=== PATIENT | female | born 1970 | race Caucasian/White ===

== ENCOUNTER 2022-06-08 10:52 | Outpatient (REF) | payer OTHER, SELFPAY ==
[2022-06-08 14:50] LABS: Free T4 (Free Thyroxine) 0.78 ng/dL (0.71-1.85); Thyroid Stimulating Hormone 0.78 uIU/mL (0.32-4.0)
[2022-06-09 17:54] LABS: Follicle Stimulating Hormone 63.3 mIU/mL; Lutenizing Hormone 52.9 mIU/mL; Prolactin 3.1 ng/mL
[2022-06-13 15:24] LABS: Progesterone <0.1 ng/mL
[2022-06-14 01:44] LABS: Testosterone, Total 21 ng/dL (2-45)
[2022-06-18 02:53] LABS: Estradiol Free 0.18 pg/mL; Estradiol, Ultrasensitive 7 pg/mL
== END 2022-06-08 10:53 | disposition home or self-care (01) ==
LOC: HO.MANLDS 10:52
PROVIDERS: Visit Provider Physician Assistant
DX: N95.8 Other specified menopausal and perimenopausal disorders (principal); R53.83 Other fatigue; N92.6 Irregular menstruation, unspecified
CPT/HCPCS: 36415; 82670; 82681; 83001; 83002; 84144; 84146; 84403; 84439; 84443

== ENCOUNTER → 2023-03-12 13:53 | Outpatient (BNVA) | payer OTHER, SELFPAY | PROVIDERS: PCP Internal Medicine; Visit Provider Physician Assistant Surgical ==

== ENCOUNTER 2023-06-25 15:50 | Outpatient (REF) | payer OTHER, SELFPAY ==
[2023-06-25 17:21] LABS: MANUAL DIFF FLAG NO
[2023-06-25 17:27] LABS: Basophils Percent Auto 0.6 % (0-2); Eosinophils Absolute Auto 0.1 X10*3/uL (0.0-0.4); Eosinophils Percent Auto 1.8 % (0-4); Hematocrit 40.2 % (37.0-47.0); Hemoglobin 13.5 g/dl (12.0-16.0); Imm Gran Abs Auto 0.02 X10*3/uL (0.00-0.03); Imm Gran Pct Auto 0.3 % (0.0-0.4); Lymphocytes Absolute Auto 1.9 X10*3/uL (1.2-4.9); Lymphocytes Percent Auto 31.2 % (20-40); Mean Corpuscular HGB Conc 33.6 g/dl (31.0-35.0); Mean Corpuscular Hemoglobin 29.3 pg (27.0-33.0); Mean Corpuscular Volume 87.4 fL (80.0-98.0); Mean Platelet Volume 9.3 fL (9.4-12.3); Monocytes Absolute Auto 0.6 X10*3/uL (0.1-1.2); Monocytes Percent Auto 8.9 % (2-11); Neutrophils Absolute Auto 3.5 x10*3/uL (2.0-8.3); Neutrophils Percent Auto 57.2 % (45-73); Platelet Count 294 X10*3/uL (160-400); Red Cell Distribution Width 12.8 % (11.0-16.0); White Blood Count 6.2 X10*3/uL (4.8-10.8)
[2023-06-25 17:49] LABS: Alanine Aminotransferase 26 U/L (0-31); Alkaline Phosphatase 51 U/L (39-117); Amylase 43 U/L (28-100); Anion Gap 9 (12-20); Aspartate Amino Transferase 16 U/L (5-31); Bilirubin Total 0.3 mg/dL (0.0-1.0); Blood Urea Nitrogen 8 mg/dL (9-16); C Reactive Protein 0.18 mg/dL (< or = 0.50); Calcium 8.9 mg/dL (8.4-10.2); Carbon Dioxide 28 mmol/L (22-29); Chloride 107 mmol/L (96-108); Estimated Glomerular Filt Rate > 60; Gamma Glutamyl Transpeptidase 24 U/L (7-33); Glucose Random 103 mg/dL (60-115); Iron 61 mcg/dL (30-160); Lipase 18 U/L (8-78); Percent Iron Saturation 20 % (15-50); Sodium 140 mmol/L (135-145); Total Iron Binding Capacity 302 mcg/dL (228-428); Total Protein 7.6 g/dL (6.5-8.0); Unsaturated Iron Binding 241 ug/dL
[2023-06-25 18:04] LABS: Ferritin 147 ng/mL (10-250)
[2023-06-25 18:52] LABS: Erythrocyte Sedimentation Rate 21 MM/HR (0-20)
== END 2023-06-25 15:51 | disposition home or self-care (01) ==
LOC: HO.MANLDS 15:50
PROVIDERS: Visit Provider Physician Assistant
DX: K29.60 Other gastritis without bleeding (principal)
CPT/HCPCS: 36415; 80053; 82150; 82728; 82977; 83540; 83690; 85025; 85652; 86140

== ENCOUNTER 2023-11-01 12:54 | Outpatient (AMB) | payer OTHER, SELFPAY ==
[2023-11-01 13:04] VITALS: BMI 33.6
--- NOTE | 2023-11-01 13:04 | A.OFFVIS_ITS ---
VS Expanded 11/01/23 13:04 11/15/23 09:25 Height 5 ft 4 in 5 ft 4 in Weight 195 lb 15.855 oz 196 lb BMI 33.6 33.6 Intake Visit Reasons: Arthritis/lvm Allergies No Known Allergies Allergy (Unverified 12/14/19 16:51) Nutrition Presentation Details: Pt present for MNT for rheumatoid arthritis. Pt was referred by document imaging specialist , Larry [place] Pt reports she has recently started taking methotrexate and is working on having small meals throughout the day related to nausea, sometimes diarrhea Food frequency: fish : 2 x/wk fruits: twice/day vegetables: 2-3 x/wk coffee: 2 cup/day (was having > amount) dairy: 2-3 serving/day pastries and similar: reports working on reducing sugars BS Monitoring Most Recent Diabetes Results: Creatinine 0.87 mg/dL (0.5-1.4) 06/25/23 Blood Urea Nitrogen 8 mg/dL (9-16) L 06/25/23 Sodium 140 mmol/L (135-145) 06/25/23 Potassium 4.0 mmol/L (3.3-5.1) 06/25/23 Chloride 107 mmol/L (96-108) 06/25/23 Carbon Dioxide 28 mmol/L (22-29) 06/25/23 Calcium 8.9 mg/dL (8.4-10.2) 06/25/23 AST 16 U/L (5-31) 06/25/23 ALT 26 U/L (0-31) 06/25/23 Total Protein 7.6 g/dL (6.5-8.0) 06/25/23 Albumin 4.0 g/dL (3.5-5.0) 06/25/23 NIP-Dfchylv-Zv.Jeor Equation Height: 5 ft 4 in Weight: 196 lb Resting Metabolic Rate: 1492.23 Calculated Activity Level: Sedentary Calories Needed to Maintain Weight: 1790.68 Diagnosis Nutrition problem #1: food nutri know defi As related to (etiology) #1: diagnosis As evidenced by (sign/symptom) #1: knowledge deficit of diet Assessment & Plan Assessment & Plan (1) Arthritis: Comment: Pt with obesity with BMI at 33.6 on 10/2023 Code(s): M19.90 - Unspecified osteoarthritis, unspecified site Category: Medical Plan: Wt: 89 Kg ( 10/2023 ) Est kcal needs as per MSJ: 1800 (40% carb, 30% protein/fat) Est fluid needs as per 25-30 ml/d: 2700 Est prot per day as per 1 g/kg bw: 89 Recommend fiber intake : 8-10 g per day and gradually increase to 25-28 g per day for women and 35-38 g for men or as tolerated Recommend sodium intake per day : less than 2000 mg Educated patient on: ( R = reviewed V = verbalizes understanding N/R = needs review N/A = not applicable * Food sources of carbohydrate, adequate serving sizes and its role in various health conditions: R * Differences between complex carbohydrates a simple carbohydrates, role of fiber in diet: R V N/R * Lean protein sources of foods: R V NR * Differences between types of fats and role in diet (mono on saturated fat fatty acids, saturated fatty acids, trans fats): R * Food sources of sodium in salt and healthy modifications for heart health in kidney health: R V R/V * Vitamins and minerals: R V N/R * Healthy plate method concept: R V N/R * Physical activity: Benefits a precaution: R V N/R * Folic Acid food sources : R Patient Instructions: follow healthy plate method - see meal plan for ideas Include food sources of folic acid (leafy green vegetables , nuts, avocado) keep hydrated by having water with meals and snack Coding Level of Care Code Nutr Indiv Intake (03259) Diagnoses Arthritis M19.90 Time Spent (min) 30
[2023-11-15 09:25] VITALS: BMI 33.6
== END 2023-11-01 13:44 | disposition home or self-care (01) ==
PROVIDERS: PCP Internal Medicine; Visit Provider Dietitian, Registered
DX: M19.90 Unspecified osteoarthritis, unspecified site (principal)

== ENCOUNTER → 2023-11-01 12:54 | Outpatient (BNVA) | payer OTHER, SELFPAY | PROVIDERS: PCP Internal Medicine; Visit Provider Dietitian, Registered | DX: M06.9 Rheumatoid arthritis, unspecified (principal); E66.9 Obesity, unspecified; Z68.33 Body mass index [BMI] 33.0-33.9, adult; Z79.631 Long term (current) use of antimetabolite agent; Z71.3 Dietary counseling and surveillance | CPT/HCPCS: 97802 ==

== ENCOUNTER 2024-03-23 13:20 | Outpatient (REF) | payer OTHER, SELFPAY ==
[2024-03-23 14:45] LABS: MANUAL DIFF FLAG NO
[2024-03-23 15:49] LABS: Basophils Absolute Auto 0.1 X10*3/uL (0.0-0.2); Basophils Percent Auto 0.6 % (0-2); Eosinophils Absolute Auto 0.2 X10*3/uL (0.0-0.4); Eosinophils Percent Auto 1.8 % (0-4); Hematocrit 38.4 % (37.0-47.0); Hemoglobin 12.9 g/dl (12.0-16.0); Imm Gran Abs Auto 0.02 X10*3/uL (0.00-0.03); Imm Gran Pct Auto 0.2 % (0.0-0.4); Lymphocytes Absolute Auto 2.6 X10*3/uL (1.2-4.9); Lymphocytes Percent Auto 30.2 % (20-40); Mean Corpuscular HGB Conc 33.6 g/dl (31.0-35.0); Mean Corpuscular Hemoglobin 30.8 pg (27.0-33.0); Mean Corpuscular Volume 91.6 fL (80.0-98.0); Mean Platelet Volume 9.8 fL (9.4-12.3); Monocytes Absolute Auto 0.7 X10*3/uL (0.1-1.2); Monocytes Percent Auto 8.2 % (2-11); Platelet Count 281 X10*3/uL (160-400); Red Blood Count 4.19 X10*6/uL (4.20-5.50); Red Cell Distribution Width 13.6 % (11.0-16.0); White Blood Count 8.5 X10*3/uL (4.8-10.8)
[2024-03-23 16:15] LABS: Alanine Aminotransferase 31 U/L (0-31); Aspartate Amino Transferase 26 U/L (5-31); C Reactive Protein 0.12 mg/dL (< or = 0.50); Estimated Glomerular Filt Rate > 60
[2024-03-23 16:37] LABS: Erythrocyte Sedimentation Rate 14 MM/HR (0-20)
== END 2024-03-23 13:21 | disposition home or self-care (01) ==
LOC: HO.LAB 13:20
PROVIDERS: PCP Internal Medicine; Visit Provider Internal Medicine Rheumatology
DX: M06.9 Rheumatoid arthritis, unspecified (principal); Z79.631 Long term (current) use of antimetabolite agent; Z79.899 Other long term (current) drug therapy
CPT/HCPCS: 36415; 82565; 84450; 84460; 85025; 85652; 86140

== ENCOUNTER 2024-03-23 13:20 | Outpatient (AMB) | payer OTHER, SELFPAY ==
--- NOTE | 2024-03-23 13:36 | A.OFFVIS_ITS ---
Vital Signs 03/23/24 13:37 Height 5 ft 4 in Weight 192 lb 10.944 oz BMI 33.1 BP 120/70 Blood Pressure Location Lt brachial Position Sitting Pulse 65 Pulse Source Pulse Oximeter Pulse Oximetry (%) 99 Oxygen Delivery Method Room Air Intake Visit Reasons: Arthritis (ATC recs on file) Intake Note: Patient is presents for follow up on RA today. Allergies No Known Allergies Allergy (Unverified 03/23/24 13:38) HPI HPI Arthritis (ATC recs on file): Details: SHe has sweats during the day since being on MTX. Tolerable. No other new side effects. She does notice a change since being on MTX. She has morning stiffness that lasts at least 30 minutes. +gel phenomena. She did not find benefit with prednisone course. Ache is all day. stiffness with joints at rest. Not self-medicated. Review of Systems Const All systems reviewed & are unremarkable except as noted in HPI and below Physical Exam Vital Signs: Last Vital Signs Pulse 65 03/23/24 13:37 BP 120/70 03/23/24 13:37 Pulse Ox 99 03/23/24 13:37 Oxygen Delivery Method Room Air 03/23/24 13:37 BMI result Body Mass Index 33.1 Const Other: General: Comfortable CVS: RRR Respiratory: clear to auscultation bilaterally. Good respiratory effort Skin: No lesions seen MSK: Tender to palpate bilateral MCPs with chronic synovial thickening right 2nd and left 2nd and 3rd MCP. She has tenderness of PIP knees. Manager Meeting is weak. Good range of motion of upper extremities. Tender bilateral MTPs with synovitis present. Good range of motion of lower extremities. Assessment & Plan Assessment & Plan (1) Rheumatoid arthritis: Comment: Partial response on methotrexate. After lab results are back, I will optimize dose. At this time she is tolerating sweats during the day attributed to methotrexate. Code(s): M06.9 - Rheumatoid arthritis, unspecified Category: Medical Plan: Labs for disease and drug monitoring and high-risk medication ordered After lab results are back, I will increase methotrexate dose to 17.5 mg once weekly. She will call office if she experiences worsening sweats or any new side effect or no change in symptoms on higher dose of methotrexate Continue folic acid 1 mg daily Return to clinic in 3 months (2) Other prison (current) drug therapy: Code(s): Z79.899 - Other prison (current) drug therapy Category: Medical Plan: See above Orders: Orders Complete Blood Count Auto Diff Today Z79.60 - skilled nursing (current) use of unspecified immunomodulators and immunosuppressants Creatinine Today Z79.60 - skilled nursing (current) use of unspecified immunomodulators and immunosuppressants Alanine Aminotransferase Today Z79.60 - skilled nursing (current) use of unspecified immunomodulators and immunosuppressants Aspartate Amino Transferase Today Z79.60 - medical terminologist (current) use of unspecified immunomodulators and immunosuppressants Erythrocyte Sedimentation Rate Today M06.9 - Rheumatoid arthritis, unspecified, Z79.899 - Other long term acute care registered nurse (current) drug therapy C Reactive Protein Today M06.9 - Rheumatoid arthritis, unspecified, Z79.899 - Other long term acute care registered nurse (current) drug therapy Coding Level of Care Code Est Pt Level 4 (63819) Complex EM visit Add On G2211 Diagnoses Rheumatoid arthritis M06.9 Other long term acute care registered nurse (current) drug therapy Z79.899
[2024-03-23 13:37] VITALS: BP 120/70; PULSE 65; O2SAT 99; BMI 33.1
== END 2024-03-23 14:05 | disposition home or self-care (01) ==
PROVIDERS: PCP Internal Medicine; Visit Provider Internal Medicine Rheumatology
DX: M06.9 Rheumatoid arthritis, unspecified (principal); Z79.899 Other long term (current) drug therapy
CPT/HCPCS: 99214

== ENCOUNTER 2024-04-19 11:05 | Outpatient (AMB) | payer OTHER, SELFPAY ==
[2024-04-19 11:25] VITALS: BP 128/76; PULSE 66; O2SAT 98; BMI 33.1
--- NOTE | 2024-04-19 11:25 | MHC.OFFVIS ---
Vital Signs 04/19/24 11:25 Height 5 ft 4 in Weight 193 lb BMI 33.1 BP 128/76 Blood Pressure Location Lt brachial Position Sitting Pulse 66 Pulse Source Pulse Oximeter Pulse Oximetry (%) 98 Oxygen Delivery Method Room Air Intake Visit Reasons: joint pain Intake Note: Patient presents with bilateral elbow joint pain. She states it's been 3 weeks , she has been icing, and taking Ibuprofen. Allergies No Known Allergies Allergy (Unverified 04/19/24 11:28) HPI HPI joint pain: Details: R elbow pain started first. R elbow pain > L pain. Hard to supervisor coffee and pain with lifting. In February she was working on construction in her home in her basement. Work is now completed. Since increasing methotrexate she has had 2 episodes of mouth ulcers. Self resolve. Review of Systems Const All systems reviewed & are unremarkable except as noted in HPI and below Physical Exam Vital Signs: Last Vital Signs Pulse 66 04/19/24 11:25 BP 128/76 04/19/24 11:25 Pulse Ox 98 04/19/24 11:25 Oxygen Delivery Method Room Air 04/19/24 11:25 BMI result Body Mass Index 33.1 Const Other: General: Comfortable Skin: No lesions seen MSK: She has localized tenderness to bilateral lateral epicondyles. No soft tissue swelling present. She does not have pain in elbows with resisted wrist extension. Assessment & Plan Assessment & Plan (1) Rheumatoid arthritis: Comment: She has increased her methotrexate dose to better controlled inflammatory arthritis but has been experiencing oral ulcers. Code(s): M06.9 - Rheumatoid arthritis, unspecified Category: Medical Plan: Continue methotrexate 17.5 mg once weekly Increase folic acid 2 mg daily Return to clinic in 2 months (2) Lateral epicondylitis of both elbows: Comment: Discussed diagnosis and management Code(s): M77.11 - Lateral epicondylitis, right elbow; M77.12 - Lateral epicondylitis, left elbow Category: Medical Plan: Prescription for elbow support bands given Start naproxen 375 mg b.i.d. with food PT ordered Return to clinic in 2 months Orders: Orders PT Evaluation and Treatment Today M77.11 - Lateral epicondylitis, right elbow, M77.12 - Lateral epicondylitis, left elbow Medications: New arm brace As directed. Dx: Bilateral lateral epicondylitis. Bilateral Elbow support band 2 ea 0RF naproxen Take with food 375 mg PO BID 60 tabs 1RF Changed From folic acid 1 mg PO DAILY To folic acid 2 mg (2 x 1 mg) PO DAILY 180 tabs 3RF Coding Level of Care Code Est Pt Level 3 (29272) Complex EM visit Add On G2211 Diagnoses Rheumatoid arthritis M06.9 Lateral epicondylitis of both elbows M77.11; M77.12
--- OUTSIDE RECORDS SUMMARY | 2024-04-19 12:39 | XMS_ITS | Data Portability ---
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 seated is expected -c. In adults: restleness X -d. Often unable to engage in leisure activities quietly. -e. Is often on the go, acting as if driven by a motor (eg, is unable to be or uncomfortable being still for extended time, as in restaurants, meetings: may be experienced by others as being restless or difficult to keep up with). -f. Often talks excessively. -g. Often blurts out an answer before a question has been completed (eg, completes people' sentences; cannot wait for turn in conversation). -h. Often has difficulty waiting his or her turn (eg, while waiting in line). -i. Often interrupts or intrudes on others (eg, butts into conversations, games, or activities; may start using other people's things without asking or receiving permission; for adolescents and adults, may intrude into or take over what others are doing). ? B. Several inattentive or hyperactive-impuls marguerite symptoms were present prior to age 12 years. ? C. Several inattentive or hyperactive-impuls marguerite symptoms are present in two or more settings (eg, at home, school, or work; with friends or relatives; in other activities). ? D. There is clear evidence that the symptoms interfere with, or reduce the quality of, social, academic, or occupational functioning. ? E. The symptoms do not occur exclusively during the course of schizophrenia or another psychotic disorder and are not better explained by another mental disorder (eg, mood disorder, anxiety disorder, dissociative disorder, personality disorder, substance intoxication or withdrawal) CASPER RIOJAS [address] [place] [address], [id number], [facility] 12/07/2023 10:41:11 OBGyn Episode No OBEpisode recorded.
== END 2024-04-19 12:04 | disposition home or self-care (01) ==
PROVIDERS: PCP Internal Medicine; Visit Provider Internal Medicine Rheumatology
DX: M06.9 Rheumatoid arthritis, unspecified (principal); M77.11 Lateral epicondylitis, right elbow; M77.12 Lateral epicondylitis, left elbow
CPT/HCPCS: 99213; 99214

== ENCOUNTER → 2024-04-19 11:05 | Outpatient (BNVA) | payer OTHER, SELFPAY | PROVIDERS: PCP Internal Medicine; Visit Provider Internal Medicine Rheumatology ==

== ENCOUNTER 2024-06-08 08:26 | Outpatient (RCR) | payer OTHER, SELFPAY ==
--- NOTE | 2024-05-04 14:54 | MHC.OT.EP ---
[address] [phone] Occupational Therapy Plan of Care Patient Name: Sandrita Aguirre Date of Evaluation: 05/04/24 Diagnosis: B/L Tennis Elbow Pain Location: 1/10 low ache pain at baseline 5/10 sharp pain in lateral elbows, equally Tenderness to palpate B/L epicondyles Pain Score: 1 Pain Scale Used: Numeric (0 - 10) Aggravating Factors: Lifting, gripping Alleviating Factors: Nothing tried Assessment: 53 yo female w/ hx of RA presents w/ B/L elbow pain for the last several months. She was seen by programs director and referred to OT with B/L'ly lateral epicondylitis. On assessment today, she has low pain in in general, some tenderness to palpate over both lateral epicondyles, but reports pain worsens w/ lifting, gripping or carrying. Gross grasp is strong and no signs over nerve entrapment or tenderness over radial tunnel. Symptoms appear consistent with bilateral lateral epicondylitis, likely from overuse injury w/ lifting and carrying drywall repeatedly during basement renovation in February. I anticipate she will do well with course of OT. 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 Thank you once again for your referral.
--- NOTE | 2024-06-16 07:53 | MHC.OT.DC ---
[address] [phone] F: [phone] Occupational Therapy Discharge Note Patient Name: Sandrita Aguirre Provider: Dr Rodrigue Engle Diagnosis: B/L Tennis Elbow Date of Evaluation: 05/04/24 Date of Discharge: 06/16/24 Treatments to Date: 7 Discharge Status: Patient Elected to Stop Recommend MD Follow-up Discharge Summary: Sandrita was referred to OT w/ B/L tennis elbow. She has done short course of OT w/ good understanding of home exercises and activity modification, but continues to have low pain which has not subsided and she is now referred to ortho for continued work-up. Electronically Signed By: Roberta Moon OTR/L CHT Reviewed/agree with student documentation: Therapist: Please Sign and return to therapist, thank you for your referral.
== END 2024-06-16 07:54 | disposition home or self-care (01) ==
LOC: HO.OT 08:26
PROVIDERS: PCP Internal Medicine; Visit Provider Internal Medicine Rheumatology
DX: M77.11 Lateral epicondylitis, right elbow (principal); M77.12 Lateral epicondylitis, left elbow
CPT/HCPCS: 97033; 97110; 97140; 97165

== ENCOUNTER 2024-06-22 08:00 | Outpatient (REF) | payer OTHER, SELFPAY ==
[2024-06-22 18:02] LABS: MANUAL DIFF FLAG NO
[2024-06-22 18:13] LABS: Basophils Percent Auto 0.7 % (0-2); Eosinophils Absolute Auto 0.2 X10*3/uL (0.0-0.4); Eosinophils Percent Auto 2.9 % (0-4); Hematocrit 37.2 % (37.0-47.0); Hemoglobin 12.5 g/dl (12.0-16.0); Imm Gran Abs Auto 0.02 X10*3/uL (0.00-0.03); Imm Gran Pct Auto 0.4 % (0.0-0.4); Lymphocytes Absolute Auto 1.8 X10*3/uL (1.2-4.9); Lymphocytes Percent Auto 32.1 % (20-40); Mean Corpuscular HGB Conc 33.6 g/dl (31.0-35.0); Mean Corpuscular Volume 92.3 fL (80.0-98.0); Mean Platelet Volume 9.3 fL (9.4-12.3); Monocytes Absolute Auto 0.6 X10*3/uL (0.1-1.2); Monocytes Percent Auto 9.9 % (2-11); Platelet Count 269 X10*3/uL (160-400); Red Blood Count 4.03 X10*6/uL (4.20-5.50); Red Cell Distribution Width 14.2 % (11.0-16.0); White Blood Count 5.5 X10*3/uL (4.8-10.8)
[2024-06-22 18:20] LABS: Alanine Aminotransferase 34 U/L (0-31); Aspartate Amino Transferase 26 U/L (5-31); Estimated Glomerular Filt Rate > 60
[2024-06-22 19:11] LABS: Erythrocyte Sedimentation Rate 13 MM/HR (0-20)
== END 2024-06-22 08:01 | disposition home or self-care (01) ==
LOC: HO.HKASLDS 08:00
PROVIDERS: PCP Internal Medicine; Visit Provider Internal Medicine Rheumatology
DX: M06.9 Rheumatoid arthritis, unspecified (principal); Z79.60 Long term (current) use of unspecified immunomodulators and immunosuppressants; Z79.899 Other long term (current) drug therapy
CPT/HCPCS: 36415; 82565; 84450; 84460; 85025; 85652

== ENCOUNTER 2024-06-22 08:00 | Outpatient (AMB) | payer OTHER, SELFPAY ==
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
--- NOTE | 2024-06-22 08:07 | MHC.OFFVIS ---
Vital Signs 06/22/24 08:09 Height 5 ft 4 in Weight 191 lb 9.307 oz BMI 32.9 BP 110/80 Blood Pressure Location Lt brachial Position Sitting Pulse 62 Pulse Source Pulse Oximeter Pulse Oximetry (%) 98 Oxygen Delivery Method Room Air Intake Visit Reasons: 3 mo follow up Intake Note: Patient presents for a follow up due to medication increase. Accompanied by: Self / Same As Patient Allergies No Known Allergies Allergy (Unverified 04/19/24 11:28) HPI HPI 3 mo follow up: Details: Morning stiffness is 25 minutes. She has not noted a change. Oral ulcers resolved with increasing folic acid to 2 mg daily. She is trying not to forget to take folic acid. No recent infections. She has been experiencing foot pain. Review of Systems Const All systems reviewed & are unremarkable except as noted in HPI and below Physical Exam Vital Signs: Last Vital Signs Pulse 62 06/22/24 08:09 BP 110/80 06/22/24 08:09 Pulse Ox 98 06/22/24 08:09 Oxygen Delivery Method Room Air 06/22/24 08:09 BMI result Body Mass Index 32.9 Const Other: General: Comfortable CVS: RRR Respiratory: clear to auscultation bilaterally. Good respiratory effort Skin: No lesions seen MSK: Tender to palpate right 2nd to 4th PIP with synovitis of right 2nd and 3rd PIP. Tender left 2nd to 3rd MCP and PIPs. Normal range of motion of upper extremities. Tender bilateral MTPs with synovitis present. Good range of motion of lower extremities. Bilateral MTP tenderness. Assessment & Plan Assessment & Plan (1) Rheumatoid arthritis: Comment: She continues to have mild disease activity on monotherapy with methotrexate. Rheumatology history: Presented with early arthritis with symptom onset January 2016. Weakly positive rheumatoid factor. Celebrex 02/2017-increase 200 b.i.d. 09/2018. Prednisone DC, meloxicam intolerant DC 03/2016. Nabumetone 03/2016-02/2017. MTX 09/2023- oral ulcers resolved with increase folic acid 2 mg daily. Hepatitis panel and QuantiFERON negative 09/2023 [facility] records. Code(s): M06.9 - Rheumatoid arthritis, unspecified Category: Medical Plan: Increase methotrexate 20 mg once weekly Continue folic acid 2 mg daily Labs for disease and drug monitoring on high-risk medication ordered Return to clinic in 3 months (2) Lateral epicondylitis of both elbows: Comment: Right elbow pain is intermittent. Improved with physical therapy and wearing elbow support band. Code(s): M77.11 - Lateral epicondylitis, right elbow; M77.12 - Lateral epicondylitis, left elbow Category: Medical Plan: Continue to wear elbow support band as needed Continue PT exercises as needed Return to clinic in 3 months Orders: Orders Alanine Aminotransferase Today Z79.60 - termite exterminator helper (current) use of unspecified immunomodulators and immunosuppressants Aspartate Amino Transferase Today Z79.60 - termite exterminator helper (current) use of unspecified immunomodulators and immunosuppressants Complete Blood Count Auto Diff Today Z79.60 - correction (current) use of unspecified immunomodulators and immunosuppressants Creatinine Today Z79.60 - termite exterminator helper (current) use of unspecified immunomodulators and immunosuppressants Erythrocyte Sedimentation Rate Today Z79.899 - Other intermediate frame tender (current) drug therapy Medications: Changed From methotrexate sodium take 7 tabs on Wednesday. Increase dose. 17.5 mg (7 x 2.5 mg) PO QWEEK 28 tabs 2RF To methotrexate sodium take 7 tabs on Wednesday. Increase dose. 20 mg (8 x 2.5 mg) PO QWEEK 12 weeks 96 tabs 0RF Coding Level of Care Code Est Pt Level 4 (60755) Complex EM visit Add On G2211 Diagnoses Rheumatoid arthritis M06.9 Lateral epicondylitis of both elbows M77.11; M77.12
[2024-06-22 08:09] VITALS: BP 110/80; PULSE 62; O2SAT 98; BMI 32.9
== END 2024-06-22 08:41 | disposition home or self-care (01) ==
LOC: HO.RHES 08:00
PROVIDERS: PCP Internal Medicine; Visit Provider Internal Medicine Rheumatology
DX: M06.9 Rheumatoid arthritis, unspecified (principal); M77.11 Lateral epicondylitis, right elbow; M77.12 Lateral epicondylitis, left elbow
CPT/HCPCS: 99214

== ENCOUNTER 2024-08-08 09:25 | Outpatient (REF) | payer OTHER, SELFPAY ==
--- NOTE | ~2024-08-08 | XR_ITS ---
EXAMINATION: X-ray knee, bilaterally. CLINICAL INFORMATION: Pain, right knee. TECHNIQUE: AP view of the knees in standing position. Lateral views both knees. COMPARISON: None There is mild joint space narrowing involving the medial compartments of the knees. No acute cortical disruption or malalignment. No suprapatellar bursa effusion. No lytic or blastic lesions. XR/XR Knee Nato 1or 2V IMPRESSION: Mild medial compartment osteoarthrosis, bilaterally. Electronically signed by: Tunde Haji MD 08/08/2024 10:12 AM EDT
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
[2024-08-08 11:30] LABS: Alanine Aminotransferase 30 U/L (0-31); Aspartate Amino Transferase 28 U/L (5-31)
== END 2024-08-08 09:26 | disposition home or self-care (01) ==
LOC: HO.XRAY 09:25
PROVIDERS: PCP Internal Medicine; Visit Provider Internal Medicine Rheumatology
DX: M25.561 Pain in right knee (principal); Z79.60 Long term (current) use of unspecified immunomodulators and immunosuppressants; M25.562 Pain in left knee
CPT/HCPCS: 36415; 73560; 84450; 84460

== ENCOUNTER → 2024-08-08 09:41 | Outpatient (BNV) | payer OTHER, SELFPAY | PROVIDERS: PCP Internal Medicine; Visit Provider Radiology Diagnostic Radiology | DX: M25.561 Pain in right knee (principal) | CPT/HCPCS: 73560 ==

== ENCOUNTER 2024-09-27 08:01 | Outpatient (REF) | payer OTHER, SELFPAY ==
[2024-09-27 14:45] LABS: MANUAL DIFF FLAG NO
[2024-09-27 14:53] LABS: Hematocrit 38.5 % (37.0-47.0); Hemoglobin 12.6 g/dl (12.0-16.0); Imm Gran Abs Auto 0.01 X10*3/uL (0.00-0.03); Imm Gran Pct Auto 0.2 % (0.0-0.4); Lymphocytes Absolute Auto 1.4 X10*3/uL (1.2-4.9); Mean Corpuscular HGB Conc 32.7 g/dl (31.0-35.0); Mean Corpuscular Hemoglobin 30.4 pg (27.0-33.0); Mean Corpuscular Volume 92.8 fL (80.0-98.0); NRBC Abs Auto 0.000 X10*3/uL (0.0-0.012); NRBC Pct Auto 0.0 /100WBC (0.0-0.2); Platelet Count 290 X10*3/uL (160-400); Red Blood Count 4.15 X10*6/uL (4.20-5.50); White Blood Count 5.2 X10*3/uL (4.8-10.8)
[2024-09-27 15:00] LABS: Alanine Aminotransferase 50 U/L (0-31); Aspartate Amino Transferase 32 U/L (5-31); Estimated Glomerular Filt Rate > 60
[2024-10-03 21:03] LABS: Glucose-6-Phosphate Dehydrogen 18.1 U/g Hgb (7.0-20.5)
== END 2024-09-27 08:02 | disposition home or self-care (01) ==
LOC: HO.HKASLDS 08:01
PROVIDERS: PCP Internal Medicine; Visit Provider Internal Medicine Rheumatology
DX: M06.9 Rheumatoid arthritis, unspecified (principal); Z79.899 Other long term (current) drug therapy; Z79.60 Long term (current) use of unspecified immunomodulators and immunosuppressants
CPT/HCPCS: 36415; 82565; 82955; 84450; 84460; 85025

== ENCOUNTER 2024-09-27 08:01 | Outpatient (AMB) | payer OTHER, SELFPAY ==
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
--- NOTE | 2024-09-27 08:05 | A.OFFVIS_ITS ---
Vital Signs 09/27/24 08:06 Height 5 ft 4 in Weight 187 lb 6.287 oz BMI 32.2 BP 120/78 Blood Pressure Location Lt brachial Position Sitting Pulse 68 Pulse Source Pulse Oximeter Pulse Oximetry (%) 100 Oxygen Delivery Method Room Air Intake Visit Reasons: 3 months Intake Note: Patient presents with bilateral elbow joint pain. Allergies No Known Allergies Allergy (Verified 09/27/24 08:10) HPI HPI 3 months: Details: Intermittent nausea after taking MTX but it is tolerable. She started PT for knee strengthening with benefit. MS 15-20min R 3rd finger pain is the worse. Physical Exam Vital Signs: Last Vital Signs Pulse 68 09/27/24 08:06 BP 120/78 09/27/24 08:06 Pulse Ox 100 09/27/24 08:06 Oxygen Delivery Method Room Air 09/27/24 08:06 BMI result Body Mass Index 32.2 Const Other: General: Comfortable CVS: RRR Respiratory: clear to auscultation bilaterally. Good respiratory effort Skin: No lesions seen MSK: Tender to palpate right 3rd PIP. Tender left 2nd MCP with synovitis. Normal range of motion of upper extremities. Tender bilateral MTPs without synovitis present. Good range of motion of lower extremities. Assessment & Plan Assessment & Plan (1) Rheumatoid arthritis: Comment: She continues to have mild disease activity on monotherapy with methotrexate. I do not therapy with hydroxychloroquine. Discussed side effects, benefits and drug monitoring on hydroxychloroquine. Rheumatology history: Presented with early arthritis with symptom onset January 2016. Weakly positive rheumatoid factor. Celebrex 02/2017-increase 200 b.i.d. 09/2018. Prednisone DC, meloxicam intolerant DC 03/2016. Nabumetone 03/2016-02/2017. MTX 09/2023- oral ulcers resolved with increase folic acid 2 mg daily. Hepatitis panel and QuantiFERON negative 09/2023 [facility] records. Code(s): M06.9 - Rheumatoid arthritis, unspecified Category: Medical Plan: Continue methotrexate 20 mg once weekly Change folic acid to leucovorin 5 mg the day after you take methotrexate once weekly Labs for disease and drug monitoring on high-risk medication ordered. After lab results are back, we will send prescription for hydroxychloroquine 400 mg daily. Prednisone course prescribed Return to clinic in 3 months (2) Lateral epicondylitis of both elbows: Comment: Right elbow pain is intermittent. Resolved with physical therapy and wearing elbow support band. 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 Code(s): M17.0 - Bilateral primary osteoarthritis of knee Category: Medical Plan: Encouraged weight loss Continue PT Return to clinic in 3 months Orders: Orders [id number] Dehydrogen Today M06.9 - Rheumatoid arthritis, unspecified, Z79.899 - Other [facility] (current[facility] drug therapy Medications: New prednisone Take 4 tablets daily 5 days, 3 tablets daily 5 days, 2 tablets daily 5 days, 1 tablet daily 5 days then start. Take prednisone with food. 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
[2024-09-27 08:06] VITALS: BP 120/78; PULSE 68; O2SAT 100; BMI 32.2
== END 2024-09-27 08:38 | disposition home or self-care (01) ==
LOC: HO.RHES 08:02
PROVIDERS: PCP Internal Medicine; Visit Provider Internal Medicine Rheumatology
DX: M06.9 Rheumatoid arthritis, unspecified (principal); M77.11 Lateral epicondylitis, right elbow; M77.12 Lateral epicondylitis, left elbow; Z79.899 Other long term (current) drug therapy; M17.0 Bilateral primary osteoarthritis of knee
CPT/HCPCS: 99214; G2211

== ENCOUNTER 2024-10-23 06:59 | Outpatient (RCR) | payer OTHER, SELFPAY ==
--- NOTE | 2024-09-11 08:46 | MHC.PT.EP ---
[facility] [place] [facility] [place] [facility] [place] [facility] [address] [phone] F: [phone] F: [phone] F: [phone] F: [phone] Physical Therapy Plan of Care Date of Evaluation: 09/11/24 Date of Surgery: Diagnosis: B primary OA of knee Assessment: 53 y/o female referred to PT with B knee OA. Of note, pt with PMH significant for RA and L great toe fusion. Currently pt reports difficulty and pain with squatting, kneeling, stairs, getting up from prolonged sedantary positions and walking. Examination shows decreased hip strength, no L toe motion, genu valgus mild B, good knee ROM, and impaired gait pattern. Recommend PT 2x/week for 5 weeks to address impairments, implement HEP, and optimize functional mobility. 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 Manual therapy to restore motion and function. Therapeutic exercise to improve strength and flexibility. Neuromuscular re-education for posture and balance. Therapeutic activities to return to functional activities of daily living. Electronically signed by: Marlen Hickman PT Please sign and return to therapist. Thank you for your referral.
--- NOTE | 2024-11-30 15:00 | MHC.PT.DC ---
[facility] [place] Office [place] [facility] [place] [facility] [address] Alanna Welch [address] [phone] F: [phone] F: [phone] F: [phone] F: [phone] Physical Therapy Discharge Report Diagnosis: B primary OA of knee Date of Surgery: Date of Evaluation: 09/11/24 Date of Discharge: 11/30/24 Treatments to Date: 7 Cancellations to Date: 1 No Shows to Date: 0 Discharge Status: Improved Function Independent with HEP Discharge Summary: Pt made good progress during PT with noted improved body mechanics, strength, and improved pelvic stability with functional tasks. Still with difficulty kneeling and deep squat with audible crepitus. D/c at this time to I HEp Electronically signed by: Marlen Hickman PT Please sign and return to therapist. Thank you for your referral.
== END 2024-11-30 15:00 | disposition home or self-care (01) ==
LOC: HO.PT 06:59
PROVIDERS: PCP Internal Medicine; Visit Provider Internal Medicine Rheumatology
DX: M17.0 Bilateral primary osteoarthritis of knee (principal)
CPT/HCPCS: 97110; 97161; 97530

== ENCOUNTER 2025-01-02 08:02 | Outpatient (AMB) | payer OTHER, SELFPAY ==
--- NOTE | 2025-01-02 08:10 | MHC.OFFVIS ---
Vital Signs 01/02/25 08:12 Height 5 ft 4 in Weight 188 lb 7.924 oz BMI 32.4 BP 100/80 Blood Pressure Location Rt brachial Position Sitting Pulse 72 Pulse Source Pulse Oximeter Pulse Oximetry (%) 98 Oxygen Delivery Method Room Air Intake Visit Reasons: 3 Months Intake Note: Patient presents with RA/OA follow up. Accompanied by: Self / Same As Patient Allergies No Known Allergies Allergy (Verified 01/02/25 08:18) Medication List - Last Reconciled 01/02/25 by Rodrigue Engle MD arm brace As directed. Dx: Bilateral lateral epicondylitis. Bilateral Elbow support band leucovorin calcium 5 mg PO QWEEK methotrexate sodium 20 mg (8 x 2.5 mg) PO QWEEK 12 weeks HPI HPI 3 Months: Details: MS 30 minutes. 04/07 pain. R 3rd finger locks daily, self resolves with After vacation she had COVID-19. She has recovered. She did not do exercises for 3 weeks and felt increase pain. She is back on track. She is having difficulty losing weight. She is taking methotrexate 15 mg once weekly and leucovorin 5 mg the next day. Physical Exam Vital Signs: Last Vital Signs Pulse 72 01/02/25 08:12 BP 100/80 01/02/25 08:12 Pulse Ox 98 01/02/25 08:12 Oxygen Delivery Method Room Air 01/02/25 08:12 BMI result Body Mass Index 32.4 Const Other: General: Comfortable CVS: RRR Respiratory: clear to auscultation bilaterally. Good respiratory effort Skin: No lesions seen MSK: Tender to palpate right 3rd PIP. Tender left 2nd MCP with chronic synovial thickening. Normal range of motion of upper extremities. Tender bilateral MTPs without synovitis present. Normal range of motion of lower extremities. Bilateral knee crepitus palpated Assessment & Plan Assessment & Plan (1) Rheumatoid arthritis: Comment: She continues to have mild disease activity on monotherapy with methotrexate. I had to reduced dose of methotrexate due to transaminitis. If LFTs are improving, I will start hydroxychloroquine to better control inflammatory arthritis. If she has persistent transaminitis, she will need further evaluation with dedicated liver ultrasound. Rheumatology history: Presented with early arthritis with symptom onset January 2016. Weakly positive rheumatoid factor. Celebrex 02/2017-increase 200 b.i.d. 09/2018. Prednisone DC, meloxicam intolerant DC 03/2016. Nabumetone 03/2016-02/2017. MTX 09/2023- oral ulcers resolved with increase folic acid 2 mg daily. Hepatitis panel and QuantiFERON negative 09/2023 [facility] records. Code(s): M06.9 - Rheumatoid arthritis, unspecified Category: Medical Plan: Continue methotrexate 15 mg once weekly Continue leucovorin 5 mg the day after you take methotrexate once weekly Labs for disease and drug monitoring on high-risk medication ordered. I will consider sending prescription for hydroxychloroquine 400 mg daily after lab results are back Return to clinic in 3 months (2) Other skilled nursing (current) drug therapy: Code(s): Z79.899 - Other skilled nursing (current) drug therapy Category: Medical Plan: See above (3) Bilateral primary osteoarthritis of knee: Comment: Improvement with PT. Code(s): M17.0 - Bilateral primary osteoarthritis of knee Category: Medical Plan: Encouraged weight loss. 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 and consideration of weight loss management clinic referral Continue PT home exercise program Return to clinic in 3 months Orders: Orders Complete Blood Count Auto Diff Today Z79.899 - Other skilled nursing (current) drug therapy Alanine Aminotransferase Today Z79.899 - Other superintendent [employer] oil [employer] (current) drug therapy Creatinine Today Z79.899 - Other superintendent [employer] (current) drug therapy C Reactive Protein Today Z79.899 - Other superintendent [employer] (current) drug therapy Creatinine 3 Months Z79.899 - Other superintendent [employer] (current) drug therapy Erythrocyte Sedimentation Rate 3 Months Z79.899 - Other skilled nursing (current) drug therapy Aspartate Amino Transferase Today Z79.899 - Other superintendent [employer] (current) drug therapy Erythrocyte Sedimentation Rate Today Z79.899 - Other superintendent [employer] (current) drug therapy Complete Blood Count Auto Diff 3 Months Z79.899 - Other skilled nursing (current) drug therapy Alanine Aminotransferase 3 Months Z79.899 - Other skilled nursing (current) drug therapy Aspartate Amino Transferase 3 Months Z79.899 - Other superintendent [employer] (current) drug therapy C Reactive Protein 3 Months Z79.899 - Other skilled nursing (current) drug therapy Medications: Discontinued folic acid Discontinued Reason: Doctor's Order 2 mg (2 x 1 mg) PO DAILY 180 tabs 3RF Coding Level of Care Code Est Pt Level 4 (96297) Complex EM visit Add On G2211 Diagnoses Rheumatoid arthritis M06.9 Other skilled nursing (current) drug therapy Z79.899 Bilateral primary osteoarthritis of knee M17.0
[2025-01-02 08:12] VITALS: BP 100/80; PULSE 72; O2SAT 98; BMI 32.4
== END 2025-01-02 08:41 | disposition home or self-care (01) ==
LOC: HO.RHES 08:03
PROVIDERS: PCP Internal Medicine; Visit Provider Internal Medicine Rheumatology
DX: M06.9 Rheumatoid arthritis, unspecified (principal); Z79.899 Other long term (current) drug therapy; M17.0 Bilateral primary osteoarthritis of knee
CPT/HCPCS: 99214; G2211